=== PATIENT | female | born 2000 | race Caucasian/White ===

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

== ENCOUNTER 2023-08-02 14:12 | Emergency (ER) | payer BC, MEDICAID ==
[~2023-08-02] VITALS: Ht 185.4 cm; Wt 95.3 kg
[2023-08-02] MEDS ORDERED: AMOX-430 PO (15:38)
[2023-08-02] MEDS ORDERED: AMOXICILLIN-CLAVUL 875-125MG TABLET ONE (15:44)
[2023-08-02] MEDS: AMOXICILLIN-CLAVUL 875-125MG TABLET PO ONE (15:45)
[2023-08-02 15:53] VITALS: BP 128/76; TEMP 98.1; O2SAT 97
== END 2023-08-02 15:54 | disposition home or self-care (01) ==
LOC: ER 14:20
DX: H65.91 Unspecified nonsuppurative otitis media, right ear (principal); Z79.899 Other long term (current) drug therapy
CPT/HCPCS: A4606; A4663